=== PATIENT | female | born 2000 | race Caucasian/White ===

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

== ENCOUNTER 2019-12-29 21:55 | Emergency (ER) | payer OTHER ==
[~2019-12-29] VITALS: Ht 160 cm; Wt 58.0 kg
[~2019-12-29 21:55] MED LIST changes: +AMOX1TAB61 PO; +IBUP400T18 PO
[2019-12-29 22:13] VITALS: BP 122/62
[2019-12-29] MEDS ORDERED: IV NORMAL SALINE 1,000ML 1,000 ML IV ONE (22:30)
--- NOTE | 2019-12-29 22:32 | RAD ---
Exam: Chest one view INDICATION: Shortness of breath TECHNIQUE: Frontal view of the chest Comparisons: 05/14/2016 FINDINGS: The cardiomediastinal silhouette and pulmonary vessels are within normal limits. The lung and pleural spaces are clear. IMPRESSION: No acute cardiopulmonary process. Electronically signed by: Katie Palm MD (12/29/2019 10:29 PM) [id number]
--- NOTE | 2019-12-29 22:42 | PHYS DOC ---
Past History Past Medical History: Diabetes Past Surgical History: Other Additional Past Surgical Histo: WISDOM TEETH, GANGLION CYST REMOVAL Smoking: Non-smoker Alcohol Use: Occasionally Drug Use: None General Adult EDM: Chief Complaint: HYPERGLYCEMIA HPI: HPI: 19-year-old female presents with hyperglycemia. She is a type I diabetic with an insulin pump. For the last 3 days she has been having issues regulating her sugars. She has been as high as 500. She has had nothing below 200. She has replaced her site at least 3 times. Today her sugar has been better, but she still has not been able to get below 200. She has been feeling generally fatigued and worn out. She has had a couple episodes of vomiting. She denies fever or chills. She has had some shortness of breath, but she thinks that may just be fatigue not true shortness of breath. No known COVID-19 risk factors. Review of Systems: Review of Systems: Constitutional: Denies fever or chills. Fatigue Eyes: Denies change in visual acuity HENT: Denies nasal congestion or sore throat Respiratory: Mild shortness of breath Cardiovascular: Denies chest pain or edema GI: nausea, vomiting. Denies abdominal pain, bloody stools or diarrhea : Denies dysuria Musculoskeletal: Denies back pain or joint pain Integument: Denies rash Neurologic: Denies headache, focal weakness or sensory changes Endocrine: Denies polyuria or polydipsia Lymphatic: Denies swollen glands Psychiatric: Denies depression or anxiety Heart Score: Risk Factors: Risk Factors: DM, Current or recent (<one month) smoker, HTN, HLP, family history of CAD, obesity. Risk Scores: Score 0 - 3: 2.5% MACE over next 6 weeks - Discharge Home Score 4 - 6: 20.3% MACE over next 6 weeks - Admit for Clinical Observation Score 7 - 10: 72.7% MACE over next 6 weeks - Early Invasive Strategies Allergies: Allergies: Allergies Coded Allergies Type Severity Reaction Last Updated Verified No Known Drug Allergies 10/20/14 No Physical Exam: PE: Constitutional: Well developed, well nourished, no acute distress, non-toxic appearance. [] HENT: Normocephalic, atraumatic, bilateral external ears normal, oropharynx moist, no oral exudates, nose normal. [] Eyes: PERRLA, EOMI, conjunctiva normal, no discharge. [] Neck: Normal range of motion, no tenderness, supple, no stridor. [] Cardiovascular: Heart rate regular rhythm, no murmur [] Lungs & Thorax: Bilateral breath sounds clear to auscultation [] Abdomen: Bowel sounds normal, soft, no tenderness, no masses, no pulsatile masses. [] Skin: Warm, dry, no erythema, no rash. [] Back: No tenderness, no CVA tenderness. [] Extremities: No tenderness, no cyanosis, no clubbing, ROM intact, no edema. [] Neurologic: Alert and oriented X 3, normal motor function, normal sensory function, no focal deficits noted. [] Psychologic: Affect normal, judgement normal, mood normal. [] Current Patient Data: Labs: Laboratory Tests Test 12/29/19 22:24 Glucose (Fingerstick) 248 mg/dL (70-99) H Vital Signs: Vital Signs Date Time Temp Pulse Resp B/P (MAP) Pulse Ox O2 Delivery O2 Flow Rate FiO2 12/29/19 22:13 98.2 74 16 122/62 (82) 99 Room Air EKG: EKG: [] Radiology/Procedures: Radiology/Procedures: [] Impressions: Exam: Chest one view INDICATION: Shortness of breath TECHNIQUE: Frontal view of the chest Comparisons: 05/14/2016 FINDINGS: The cardiomediastinal silhouette and pulmonary vessels are within normal limits. The lung and pleural spaces are clear. IMPRESSION: No acute cardiopulmonary process. Electronically signed by: Katie Roland MD (12/29/2019 10:29 PM) [id number] DICTATED AND SIGNED BY: KATIE ROLAND MD DATE: 12/29/19 2229 CC: EMILY MACHADO DO; DACIA CASTILLO DO ~ Course & Med Decision Making: Course & Med Decision Making Pertinent Labs and Imaging studies reviewed. (See chart for details) The patient's initial blood sugar was over 250. We have given her a liter of normal saline. Her lab work shows borderline DKA. Her blood sugar is now 200 after a liter of fluid and no further insulin. I offered to have the patient test her pump here in the emergency room to see if it changed. She would prefer to go home. I also further offered if she would like to be admitted this is possible but not absolutely necessary. She would much rather go home. She does have someone else in her household who can monitor her. She will contact her high speed operator tomorrow if the pump continues to have issues tomorrow. She is stable for discharge at this time. [] Parish Disclaimer: Parish Disclaimer: This electronic medical record was generated, in whole or in part, using a voice recognition dictation system. Departure Departure: Impression: Primary Impression: Hyperglycemia due to type 1 diabetes mellitus Disposition: HOME/RESIDENCE PRIOR TO ADM Condition: STABLE Referrals: DACIA CASTILLO DO (PCP) Patient Instructions: Hyperglycemia, [id number] Justification of Admission: Justification of Admission: Justification of Admission Dx: N/A EMILY MACHADO DO Dec 29, 2019 22:42
[2019-12-29 22:50] LABS: BASO % 0 % (0-3); EOS # 0.1 x10^3/uL (0.0-0.7); EOS % 2 % (0-3); LYMPH # 2.8 x10^3/uL (1.0-4.8); LYMPH % 35 % (24-48); MEAN CORPUSCULAR HEMOGLOBIN 30 pg (25-35); MEAN CORPUSCULAR HGB CONC 34 g/dL (31-37); MEAN CORPUSCULAR VOLUME 88 fL (79-100); MONO # 0.4 x10^3/uL (0.0-1.1); MONO % 5 % (0-9); NEUT # 4.5 x10^3uL (1.8-7.7); NEUT % 57 % (31-73); PLATELET COUNT 346 x10^3/uL (140-400); RED CELL DISTRIBUTION WIDTH 12.4 % (11.5-14.5); WHITE BLOOD COUNT 7.9 x10^3/uL (4.0-11.0)
[2019-12-29 23:03] LABS: CALCIUM 9.1 mg/dL (8.5-10.1); POTASSIUM 4.2 mmol/L (3.5-5.1)
[2019-12-29 23:09] LABS: TOTAL BILIRUBIN 0.6 mg/dL (0.2-1.0); TOTAL PROTEIN 8.1 g/dL (6.4-8.2)
[2019-12-29 23:28] LABS: BILIRUBIN,URINE NEG (NEG); CLARITY,URINE HAZY; COLOR,URINE STRAW; GLUCOSE,URINE >=1000 mg/dL (NEG); NITRITE,URINE NEG (NEG); UROBILINOGEN,URINE 0.2 mg/dL (0.2 mg/dL)
[2019-12-29 23:29] LABS: BACTERIA,URINE FEW /HPF (0-FEW); RBC,URINE OCC /HPF (0-2); SQUAMOUS EPITHELIAL CELL,UR FEW /LPF; WBC,URINE OCC /HPF (0-4)
== END 2019-12-29 23:55 | disposition home or self-care (01) ==
LOC: ER 21:55
DX: E10.65 Type 1 diabetes mellitus with hyperglycemia (principal); Z79.4 Long term (current) use of insulin
CPT/HCPCS: 36415; 71045; 80053; 81001; 81025; 82947; 85025; 96360; 99284; J7030

== ENCOUNTER 2020-11-27 10:59 | Emergency (ER) | payer OTHER ==
[~2020-11-27] VITALS: Ht 160 cm; Wt 61.3 kg
--- NOTE | 2020-11-27 11:26 | PHYS DOC ---
Past History Past Medical History: Diabetes (OBDULIA COLLIER APRN) Past Surgical History: Other Additional Past Surgical Histo: WISDOM TEETH, GANGLION CYST REMOVAL (OBDULIA COLLIER APRN) Smoking: Non-smoker Alcohol Use: Occasionally Drug Use: None (OBDULIA COLLIER APRN) General Adult EDM: Chief Complaint: CHEST PAIN HPI: HPI: Patient is a 20-year-old female who presents to the ER for sternal chest pain with shortness of breath, headache, nonproductive cough, fevers, loss of taste/smell that started on Wednesday. Patient had a positive Covid exposure. She has had 2 - Covid test. Patient rates her chest pain 3 out of 10 and describes as a pressure. She denies any radiation of pain. It is worse when laying on her side. It is better when sitting up. Patient is vaccinated for COVID-19. Only medical history is diabetes. Her vital signs are stable and she is nonlabored and in no acute distress. Patient has been taking ibuprofen for her fevers and pain. Patient denies any abdominal pain, nausea, vomiting. (OBDULIA COLLIER APRN) Review of Systems: Review of Systems: 14 body systems of the review of systems have been reviewed. See HPI for pertinent positive and negative responses, otherwise all other systems are negative, nonpertinent or noncontributory (OBDULIA COLLIER APRN) Allergies: Allergies: Allergies Coded Allergies Type Severity Reaction Last Updated Verified No Known Drug Allergies 10/20/14 No (OBDULIA COLLIER APRN) Physical Exam: PE: Constitutional: Well developed, well nourished, no acute distress, non-toxic appearance. [] HENT: Normocephalic, atraumatic, bilateral external ears normal, oropharynx moist, no oral exudates, nose normal. [] Eyes: PERRL, conjunctiva normal, no discharge. [] Neck: Normal range of motion, no tenderness, supple, no stridor. [] Cardiovascular:Heart rate regular rhythm, no murmur [] Lungs & Thorax: Bilateral breath sounds clear to auscultation [] Abdomen: Bowel sounds normal, soft, no tenderness, no masses, no pulsatile masses. [] Skin: Warm, dry, no erythema, no rash. [] Back: Normal range of motion Extremities: No tenderness, no cyanosis, no clubbing, ROM intact, no edema. [] Neurologic: Alert and oriented X 3, normal motor function, normal sensory function, no focal deficits noted. [] Psychologic: Affect normal, judgement normal, mood normal. [] (OBDULIA COLLIER APRN) EKG: EKG: EKG performed by ER staff at 1134 shows sinus rhythm, no STEMI as read by Dr. Machado at 1139. [] (OBDULIA COLLIER APRN) Radiology/Procedures: Radiology/Procedures: [] (OBDULIA COLLIER APRN) Heart Score: C/O Chest Pain: Yes HEART Score for Chest Pain: HEART Score for Chest Pain Response (Comments) Value History Slighlty/Non-Suspicious 0 ECG Normal 0 Age < 45 0 Risk Factors 1 or 2 Risk Factors 1 Troponin < Normal Limit 0 Total 1 Risk Factors: Risk Factors: DM, Current or recent (<one month) smoker, HTN, HLP, family history of CAD, obesity. Risk Scores: Score 0 - 3: 2.5% MACE over next 6 weeks - Discharge Home Score 4 - 6: 20.3% MACE over next 6 weeks - Admit for Clinical Observation Score 7 - 10: 72.7% MACE over next 6 weeks - Early Invasive Strategies (OBDULIA COLLIER APRN) Course & Med Decision Making: Course & Med Decision Making Pertinent Labs and Imaging studies reviewed. (See chart for details) [] Patient is a 20-year-old female being seen in the ER for multiple complaints. Including chest pain, shortness of breath, headache, nonproductive cough, fever, loss of taste or smell. Patient tested for COVID-19. Her test results are pending and she will be notified of these results when they become available. Work-up in the ER also consisted of blood work, EKG, chest x-ray. Patient's work-up in the ER was unremarkable. Her chest x-ray was negative. Her EKG was negative for any acute findings. Her heart score is 1. Her physical exam is reassuring. I discussed with patient all findings and diagnostic testing as well as the need to follow-up with PCP for further evaluation and treatment or return to the ER if any new or worsening symptoms. Strict return precautions were also discussed at length. Patient voiced understanding and agreement with the plan. Patient is hemodynamically stable at the time of disposition. (OBDULIA COLLIER APRN) Dragon Disclaimer: Dragmarcela Disclaimer: This electronic medical record was generated, in whole or in part, using a voice recognition dictation system. (OBDULIA COLLIER APRN) Attending Co-Sign The patient was seen and interviewed as well as examined at the bedside. The chart was reviewed. The case was discussed. Agree with the plan of care. (EMILY MACHADO DO) Departure Departure: Impression: Primary Impression: Person under investigation for COVID-19 Additional Impression: Chest pain Qualified Codes: R07.9 - Chest pain, unspecified Disposition: HOME / SELF CARE / HOMELESS Condition: GOOD Referrals: PCP,NO (PCP) Patient Instructions: Chest Pain (Nonspecific) Additional Instructions: You were seen for chest pain, shortness of breath, headache, fever, loss of taste/smell. Your physical exam was reassuring. Your chest x-ray was normal. Your lab work was unremarkable. Your EKG was unremarkable for a cardiac event at this time. We tested you for COVID-19 but this test does not come back for 1 to 2 days. In the meantime you will need to quarantine yourself at home away from all other individuals, especially those who are elderly or have any other chronic health issues or any one with immunocompromise status. You should return to the ER if you develop worsening cough, shortness of breath, chest pain, or any other new or concerning symptoms. Alternate Tylenol and ibuprofen as needed for your body aches and pain. If your test does come back positive we will need to quarantine yourself for 10 days until symptom free. You should make sure to drink plenty of fluids and get plenty of rest. EMERGENCY DEPARTMENT GENERAL DISCHARGE INSTRUCTIONS Thank you for coming to [facility] (ED) today and trusting us with you care. We trust that you had a positivie experience in our Emergency Department. If you wish to speak to the department management, you may call the director at [phone]. YOUR FOLLOW UP INSTRUCTIONS ARE FOLLOWS: 1. Do you have a private Doctor? If you do not have a private doctor, please ask for a resource list of physicians or clinics that may be able to assist you with follow up care. 2. The Emergency Physician has interpreted your x-rays. The X-Ray specialist will also review them. If there is a change in the findings, you will be notified in 48 hours when at all possible. 3. A lab test or culture has been done, your results will be reviewed and you will be notified if you need a change in treatment. ADDITIONAL INSTRUCTIONS AND INFORMATION: 1. Your care today has been supervised by a physician who is specially trained in emergency care. Many problems require more than one evaluation for a complete diagnosis and treatment. We recommend that you schedule your follow up appointment as recommended to ensure complete treatment of you illness or injury. If you are unable to obtain follow up care and continue to have a problem, or if your condition worsens, we recommend that you return to the ED. 2. We are not able to safely determine your condition over the phone nor are we able to give sound medical advice over the phone. For these safety reasons, if you call for medical advice we will ask you to come to the ED for further evaluation. 3. If you have any questions regarding these discharge instructions please call the ED at [phone]. SAFETY INFORMATION: In the interest of safety, wellness, and injury prevention; we encourage you to wear your sealbelt, if you smoke; quite smoking, and we encourage family to use a protective helmet for bicycling and other sporting events that present an increased risk for head injury. IF YOUR SYMPTOMS WORSEN OR NEW SYMPTOMS DEVELOP, OR YOU HAVE CONCERNS ABOUT YOUR CONDITION; OR IF YOUR CONDITION WORSENS WHILE YOU ARE WAITING FOR YOUR FOLLOW UP APPOINTMENT; EITHER CONTACT YOUR PRIMARY CARE DOCTOR, THE PHYSICIAN WHOSE NAME AND NUMBER YOU WERE GIVEN, OR RETURN TO THE ED IMMEDIATELY. OBDULIA COLLIER APRN Nov 27, 2020 11:26 EMILY MACHADO DO Nov 28, 2020 06:33
--- NOTE | 2020-11-27 11:45 | EKG ---
[address] [address] Test Date: 2020-11-27 Test Time: 11:34:35 Pat Name: AMY MYERS Department: Room: Gender: F [employer]: : 2000 Requested By: OBDULIA COLLIER Order Number: [id number] Reading MD: Measurements Intervals [place] Rate: 72 P: 62 MO: 148 QRS: 52 QRSD: 74 T: 36 QT: 346 QTc: 380 Interpretive Statements SINUS RHYTHM OTHERWISE NORMAL ECG RI6.02 No previous ECG available for comparison
--- NOTE | 2020-11-27 11:55 | RAD ---
Exam Date: 11/27/2020 11:40 AM XR CHEST 1V Indication: Reason: cp / Spl. Instructions: / History: . Comparison: December 29, 2019 FINDINGS/ IMPRESSION: The cardiac silhouette and pulmonary vasculature are within normal limits. There is no focal consolidation, pleural effusion or pneumothorax. The visualized osseous structures are intact. Electronically signed by: Moy Andrews MD (11/27/2020 11:52 AM) [facility]
[2020-11-27 12:11] LABS: BASO # 0.1 x10^3/uL (0.0-0.2); BASO % 1 % (0-3); EOS # 0.2 x10^3/uL (0.0-0.7); EOS % 4 % (0-3); HEMATOCRIT 40.9 % (36.0-47.0); HEMOGLOBIN 13.6 g/dL (12.0-15.5); LYMPH % 35 % (24-48); MEAN CORPUSCULAR HEMOGLOBIN 30 pg (25-35); MEAN CORPUSCULAR HGB CONC 33 g/dL (31-37); MEAN CORPUSCULAR VOLUME 90 fL (79-100); MONO # 0.3 x10^3/uL (0.0-1.1); MONO % 5 % (0-9); NEUT # 3.2 x10^3uL (1.8-7.7); NEUT % 55 % (31-73); PLATELET COUNT 313 x10^3/uL (140-400); RED BLOOD COUNT 4.55 x10^6/uL (3.50-5.40); RED CELL DISTRIBUTION WIDTH 12.7 % (11.5-14.5); WHITE BLOOD COUNT 5.7 x10^3/uL (4.0-11.0)
[2020-11-27 12:19] VITALS: BP 125/68
[2020-11-27 12:20] LABS: CALCIUM 8.9 mg/dL (8.5-10.1); CREATININE 0.3 mg/dL (0.6-1.0); GFR 278.2; POTASSIUM 4.7 mmol/L (3.5-5.1)
== END 2020-11-27 13:21 | disposition home or self-care (01) ==
LOC: ER 10:59
DX: R07.2 Precordial pain (principal); R06.02 Shortness of breath; R51.9 Headache, unspecified; E11.9 Type 2 diabetes mellitus without complications; Z20.822 Contact with and (suspected) exposure to COVID-19
CPT/HCPCS: 36415; 71045; 80048; 84484; 85025; 93005; C9803; U0003; 99285-25